=== PATIENT | male | born 1960 | race American Indian/Alaskan Native ===

== ENCOUNTER 2019-05-30 09:39 | Day surgery (SDC) | payer OTHER ==
[~2019-05-30 09:39] MED LIST: SODIUM CHLORIDE 0.9% 1000 ML 1,000 ML IV SCH
--- NOTE | 2019-05-30 12:16 | Anesthesia Consultation ---
Anesthesia Consult and Med Hx Date of service: 05/30/19 - Airway Anesthetic Teeth Evaluation: Good ROM Head & Neck: Adequate Mental/Hyoid Distance: Inadequate Mallampati Class: Class III Intubation Access Assessment: Possibly Difficult - Pulmonary Exam CTA: Yes - Cardiac Exam Cardiac Exam: RRR - Pre-Operative Health Status ASA Pre-Surgery Classification: ASA3 Proposed Anesthetic Plan: MAC - Pulmonary Hx Smoking: Yes (Quit 20 years ago) Hx Sleep Apnea: Yes (CPAP; infrequent use) - Cardiovascular System Hx Hypertension: Yes - Central Nervous System Hx Back Pain: Yes (Chronic pain; hx of nerve stimulator) - Endocrine Hx Liver Disease: Yes (Hyperlipidemia) Hx Non-Insulin Dependent Diabetes: Yes - Other Systems Hx Cancer: Yes (CHRONIC LYMPHOCYTIC LEUKEMIA) Hx Obesity: Yes (BMI 39)
--- NOTE | 2019-05-30 12:17 | Anesthesia Day of Surgery ---
Anesthesia Day of Surgery - Day of Surgery Patient Examined: Yes Patient H&P Reviewed: Yes Patient is NPO: Yes Beta Blockers: Yes
[2019-05-30] MEDS ORDERED: propofoL 200 MG/20 ML VIAL IV ONE ×3 (12:18→12:37)
--- NOTE | 2019-05-30 13:01 | Procedure Note ---
Date of procedure: 05/30/19 Pre-op diagnosis: GERD/ Colon Polyp Screening and F/H/O Cancer (mniece had Breast Cancer) Procedure: EGD with biopsy and Colonoscopy with Biopsy Anesthesia: MAC Surgeon: SYLWIA YADAV Estimated blood loss: minimal Pathology: list Specimen disposition: to lab Condition: stable Disposition: same day (Treat with PPI and encourage fiber intake. Resume home medication, but abodi aspirin and NSAID for 5 days. follow up in 1 to 2 weeks ([phone]).)
--- NOTE | 2019-05-30 13:27 | Operative Report ---
PROCEDURE: Esophagogastroduodenoscopy with biopsy. INDICATIONS: A 58-year-old -[place] gentleman with an underlying history of chronic lymphocytic leukemia who has been having GERD symptoms. EGD was done to assess for any significant upper GI pathology. DESCRIPTION OF PROCEDURE: Procedure was done after getting informed consent with MAC anesthesia. Instrument was passed through the hypopharynx into the esophagus, which showed mild to moderate erosive esophagitis. Biopsy was done from the distal esophagus. Stomach showed gastritis. Biopsy was done from the gastric antrum, gastric body and angular incisura to rule out for H. pylori and atrophic gastritis. The pylorus was patent. The duodenum in the first and the second portion appeared normal. No additional biopsy was done. There was minimal bleeding from the biopsy sites and no complications associated with the procedure. ASSESSMENT: Gastroesophageal reflux disease symptoms, mild to moderate erosive esophagitis, gastritis, duodenitis. PLAN: To treat the patient with PPI, have the patient avoid aspirin and aspirin-related products for the next few days and follow up in the office in 1-2 weeks' time. A colonoscopy will also be done as part of colon polyp screening. The procedure was done in the GI lab with assistance of the GI lab team, which included EMMA Love; Franco robledo and with assistance of anesthesia. JOB# [id number] NOMI/VENU
--- NOTE | 2019-05-30 13:29 | Operative Report ---
PROCEDURE: Colonoscopy. INDICATIONS: A 58-year-old -[place] gentleman with an underlying history of chronic lymphocytic leukemia. He does have a family history of cancer. The patient's niece has had history of breast cancer. EGD done prior to the colonoscopy, it showed [id number] erosive esophagitis, gastritis and duodenitis. PROCEDURE: Colonoscopy was done after getting informed consent with MAC anesthesia. Initial rectal exam was unremarkable. Instrument was passed through the rectum onto the cecum, which was identified with ileocecal valve and the appendiceal orifice. Visualization was fair to good. The cecum, ascending colon and transverse colon showed normal mucosa. There were a minor diverticula noted in the left colon. The rectum showed 3 small polyps, possibly hyperplastic that were removed by cold biopsy. With minimal bleeding in the rectum, also showed minor internal hemorrhoid on the retroverted view. ASSESSMENT: Colon polyp screening. Small rectal polyps, possibly hyperplastic. Minor diverticular disease involving the left colon and minor internal hemorrhoid. There was minimal bleeding associated with the procedure. No complications associated with the procedure. PLAN: To encourage the patient to take fiber supplements. Resume home medication, but to avoid aspirin and aspirin-related products for the next few days and treat the patient with PPI, if the patient is not already on it. The patient will be asked to follow up in the office in 1-2 weeks' time. The procedure was done in the GI lab with assistance of the GI lab team, which included venkat Andujar and with assistance of anesthesia. JOB# [id number] NOMI/VENU
[2019-05-30 13:35] VITALS: BP 166/78
--- NOTE | 2019-05-30 14:36 | Post Anesthesia Evaluation ---
- Post Anesthesia Evaluation Patient Participated: Yes Airway Patent: Yes Stable Respiratory Function: Yes Nausea/Vomiting: No Temp > 96.8F: Yes Pain Manageable: Yes Adequeate Hydration: Yes Anesthesia Complications: No
== END 2019-05-30 13:51 | disposition home or self-care (01) ==
LOC: GIO 09:39
DX: Z12.11 Encounter for screening for malignant neoplasm of colon (principal); K21.0 Gastro-esophageal reflux disease with esophagitis; K62.1 Rectal polyp; K31.89 Other diseases of stomach and duodenum; I10 Essential (primary) hypertension; K64.8 Other hemorrhoids; K29.70 Gastritis, unspecified, without bleeding; K29.80 Duodenitis without bleeding; K57.30 Diverticulosis of large intestine without perforation or abscess without bleeding; G47.30 Sleep apnea, unspecified; M19.90 Unspecified osteoarthritis, unspecified site; E11.9 Type 2 diabetes mellitus without complications; F32.9 Major depressive disorder, single episode, unspecified; Z80.0 Family history of malignant neoplasm of digestive organs; Z86.010 Personal history of colon polyps; Z80.3 Family history of malignant neoplasm of breast; Z79.899 Other long term (current) drug therapy; Z79.82 Long term (current) use of aspirin
CPT/HCPCS: 43239; 45380; 82962; 88305; 88342; J2704